=== PATIENT | female | born 1970 | race Caucasian/White ===

== ENCOUNTER 2020-05-20 16:26 | Outpatient (REF) | payer BC, SELFPAY ==
[2020-05-20 17:08] LABS: Influenza A PCR NEGATIVE (Negative); Influenza B PCR NEGATIVE (Negative); Resp Syncy Virus RNA Qual PCR NEGATIVE (Negative); SARS COV2 PCR INHOUSE NEGATIVE (Negative)
== END 2020-05-20 16:27 | disposition home or self-care (01) ==
LOC: HO.LNP 16:26
PROVIDERS: Visit Provider Internal Medicine
DX: Z20.828 Contact with and (suspected) exposure to other viral communicable diseases (principal)
CPT/HCPCS: 0241U

== ENCOUNTER 2020-08-10 16:42 | Outpatient (REF) | payer BC, SELFPAY ==
[2020-08-10 18:26] LABS: Basophils Percent Auto 0.2 % (0-2); Eosinophils Absolute Auto 0.1 X10*3/uL (0.0-0.4); Eosinophils Percent Auto 1.5 % (0-4); Hematocrit 41.3 % (37-47); Hemoglobin 13.5 g/dl (12.0-16.0); Imm Gran Abs Auto 0.01 X10*3/uL (0.00-0.03); Imm Gran Pct Auto 0.2 % (0.0-0.4); Lymphocytes Absolute Auto 0.3 X10*3/uL (1.2-4.9); Lymphocytes Percent Auto 7.3 % (20-40); MANUAL DIFF FLAG SCAN; Mean Corpuscular HGB Conc 32.7 g/dl (31.0-35.0); Mean Corpuscular Hemoglobin 31.2 pg (27.0-33.0); Mean Corpuscular Volume 95.4 fL (80-98); Mean Platelet Volume 11.8 fL (9.4-12.3); Monocytes Absolute Auto 0.9 X10*3/uL (0.1-1.2); Neutrophils Absolute Auto 2.8 X10*3/uL (2.0-8.3); Neutrophils Percent Auto 68.8 % (45-73); Platelet Count 226 X10*3/uL (160-400); Red Blood Count 4.33 X10*6/uL (4.20-5.50); Red Cell Distribution Width 13.1 % (11.0-16.0); SCAN SMEAR FLAG 1; White Blood Count 4.1 X10*3/uL (4.8-10.8)
[2020-08-10 18:44] LABS: SLIDE REVIEW VERIFIED
[2020-08-10 18:51] LABS: Alanine Aminotransferase 26 U/L (0-31); Albumin Level 4.6 g/dL (3.5-5.0); Alkaline Phosphatase 110 U/L (39-117); Anion Gap 11 (12-20); Aspartate Amino Transferase 25 U/L (5-31); Bilirubin Total 0.9 mg/dL (0.0-1.0); Blood Urea Nitrogen 15 mg/dL (9-16); Calcium 9.5 mg/dL (8.4-10.2); Carbon Dioxide 31 mmol/L (22-29); Chloride 103 mmol/L (96-108); Estimated Glomerular Filt Rate > 60; Glucose Random 79 mg/dL (60-115); Potassium 4.2 mmol/L (3.3-5.1); Sodium 141 mmol/L (135-145)
[2020-08-10 19:19] LABS: Vitamin B12 440 pg/mL (200-900)
== END 2020-08-10 16:43 | disposition home or self-care (01) ==
LOC: HO.LAB 16:42
PROVIDERS: PCP Internal Medicine; Visit Provider Internal Medicine
DX: M79.651 Pain in right thigh (principal); I78.1 Nevus, non-neoplastic
CPT/HCPCS: 36415; 80053; 82550; 82607; 85025; 86140

== ENCOUNTER 2020-08-27 07:32 | Outpatient (REF) | payer BC, SELFPAY ==
--- NOTE | ~2020-08-27 | MM_ITS ---
EXAMINATION: MM SCREENING DIGITAL BREAST TOMOSYNTHESIS, BILATERAL CLINICAL INFORMATION: Screening. Asymptomatic. The lifetime risk of breast cancer based on the Tyrer-Cuzick Model is 11.3%. COMPARISON: Mammography: March 31, 2019 and studies dating back to July 10, 2013 TECHNIQUE: Digital breast tomosynthesis is performed in both the craniocaudal and mediolateral oblique views along with computer-aided detection (CAD). Synthesized 2D images are generated from the tomosynthesis. FINDINGS: There are scattered areas of fibroglandular density (ACR BI-RADS breast composition Category b). There are no significant masses, abnormal calcifications, or other abnormalities. MM/MM tomosynthesis screening BI IMPRESSION: There are no significant changes from prior study. ASSESSMENT: BI-RADS 1: Negative RECOMMENDATION: Routine annual mammography screening. This patient's information was entered into a reminder system with a target due date for their next mammogram.
== END 2020-08-27 07:33 | disposition home or self-care (01) ==
LOC: HO.MAMMO 07:32
PROVIDERS: PCP Internal Medicine; Visit Provider Internal Medicine
DX: Z12.31 Encounter for screening mammogram for malignant neoplasm of breast (principal)
CPT/HCPCS: 77063; 77067

== ENCOUNTER → 2021-07-12 15:14 | Outpatient (BNVA) | payer BC, SELFPAY | PROVIDERS: PCP Internal Medicine; Referring Provider Internal Medicine; Visit Provider Surgery ==

== ENCOUNTER 2021-09-02 07:31 | Outpatient (REF) | payer BC, SELFPAY ==
--- NOTE | ~2021-09-02 | MM_ITS ---
EXAMINATION: MM SCREENING DIGITAL BREAST TOMOSYNTHESIS, BILATERAL CLINICAL INFORMATION: Screening. Asymptomatic. The lifetime risk of breast cancer based on the Tyrer-Cuzick Model is 11.1%. COMPARISON: Mammography: August 27, 2020 and studies dating back to October 12, 2015 TECHNIQUE: Digital breast tomosynthesis is performed in both the craniocaudal and mediolateral oblique views along with computer-aided detection (CAD). Synthesized 2D images are generated from the tomosynthesis. FINDINGS: There are scattered areas of fibroglandular density (ACR BI-RADS breast composition Category b). There are no significant masses, abnormal calcifications, or other abnormalities. MM/MM tomosynthesis screening BI IMPRESSION: There are no significant changes from prior study. ASSESSMENT: BI-RADS 1: Negative RECOMMENDATION: Routine annual mammography screening. This patient's information was entered into a reminder system with a target due date for their next mammogram.
== END 2021-09-02 07:32 | disposition home or self-care (01) ==
LOC: HO.MAMMO 07:31
PROVIDERS: PCP Internal Medicine; Visit Provider Internal Medicine
DX: Z12.31 Encounter for screening mammogram for malignant neoplasm of breast (principal)
CPT/HCPCS: 77063; 77067

== ENCOUNTER 2021-11-01 07:25 | Outpatient (REF) | payer BC, SELFPAY ==
[2021-11-01 08:06] LABS: MANUAL DIFF FLAG NO
[2021-11-01 08:19] LABS: Basophils Percent Auto 0.2 % (0-2); Eosinophils Absolute Auto 0.1 X10*3/uL (0.0-0.4); Eosinophils Percent Auto 1.5 % (0-4); Hematocrit 43.6 % (37.0-47.0); Hemoglobin 14.2 g/dl (12.0-16.0); Imm Gran Abs Auto 0.02 X10*3/uL (0.00-0.03); Imm Gran Pct Auto 0.5 % (0.0-0.4); Lymphocytes Absolute Auto 0.3 X10*3/uL (1.2-4.9); Lymphocytes Percent Auto 7.9 % (20-40); Mean Corpuscular HGB Conc 32.6 g/dl (31.0-35.0); Mean Corpuscular Hemoglobin 30.9 pg (27.0-33.0); Monocytes Absolute Auto 0.8 X10*3/uL (0.1-1.2); Monocytes Percent Auto 19.9 % (2-11); Neutrophils Absolute Auto 2.8 x10*3/uL (2.0-8.3); Platelet Count 233 X10*3/uL (160-400); Red Blood Count 4.59 X10*6/uL (4.20-5.50); Red Cell Distribution Width 13.1 % (11.0-16.0)
[2021-11-01 08:41] LABS: Alanine Aminotransferase 34 U/L (0-31); Albumin Level 4.6 g/dL (3.5-5.0); Alkaline Phosphatase 128 U/L (39-117); Aspartate Amino Transferase 25 U/L (5-31); Bilirubin Direct < 0.2 mg/dL (0.0-0.5); Bilirubin Total 0.4 mg/dL (0.0-1.0); Total Protein 7.2 g/dL (6.5-8.0)
== END 2021-11-01 07:26 | disposition home or self-care (01) ==
LOC: HO.LAB 07:25
PROVIDERS: PCP Internal Medicine; Visit Provider Physician Assistant
DX: G35 Multiple sclerosis (principal)
CPT/HCPCS: 36415; 80076; 85025

== ENCOUNTER 2022-04-06 11:46 | Outpatient (REF) | payer BC, SELFPAY ==
[2022-04-06 12:24] LABS: MANUAL DIFF FLAG NO
[2022-04-06 12:37] LABS: Basophils Percent Auto 0.3 % (0-2); Eosinophils Absolute Auto 0.1 X10*3/uL (0.0-0.4); Eosinophils Percent Auto 2.3 % (0-4); Hematocrit 40.7 % (37.0-47.0); Hemoglobin 13.5 g/dl (12.0-16.0); Imm Gran Abs Auto 0.01 X10*3/uL (0.00-0.03); Imm Gran Pct Auto 0.3 % (0.0-0.4); Lymphocytes Absolute Auto 0.3 X10*3/uL (1.2-4.9); Lymphocytes Percent Auto 7.9 % (20-40); Mean Corpuscular HGB Conc 33.2 g/dl (31.0-35.0); Mean Corpuscular Hemoglobin 30.8 pg (27.0-33.0); Mean Corpuscular Volume 92.7 fL (80.0-98.0); Mean Platelet Volume 10.8 fL (9.4-12.3); Monocytes Absolute Auto 0.8 X10*3/uL (0.1-1.2); Monocytes Percent Auto 19.8 % (2-11); Neutrophils Absolute Auto 2.7 x10*3/uL (2.0-8.3); Neutrophils Percent Auto 69.4 % (45-73); Platelet Count 224 X10*3/uL (160-400); Red Blood Count 4.39 X10*6/uL (4.20-5.50); Red Cell Distribution Width 12.8 % (11.0-16.0); White Blood Count 3.9 X10*3/uL (4.8-10.8)
[2022-04-06 13:25] LABS: Alanine Aminotransferase 23 U/L (0-31); Albumin Level 4.6 g/dL (3.5-5.0); Alkaline Phosphatase 122 U/L (39-117); Aspartate Amino Transferase 22 U/L (5-31); Bilirubin Direct 0.2 mg/dL (0.0-0.5); Bilirubin Total 0.6 mg/dL (0.0-1.0); Vitamin D 25-OH Total 19.8 ng/mL (>30)
[2022-04-06 13:47] LABS: Vitamin B12 335 pg/mL (200-900)
== END 2022-04-06 11:47 | disposition home or self-care (01) ==
LOC: HO.LAB 11:46
PROVIDERS: PCP Internal Medicine; Visit Provider Physician Assistant
DX: G35 Multiple sclerosis (principal)
CPT/HCPCS: 36415; 80076; 82306; 82607; 85025

== ENCOUNTER 2022-09-08 07:31 | Outpatient (REF) | payer BC, SELFPAY ==
--- NOTE | ~2022-09-08 | MM_ITS ---
EXAMINATION: MM SCREENING DIGITAL BREAST TOMOSYNTHESIS, BILATERAL CLINICAL INFORMATION: Screening. Asymptomatic. The lifetime risk of breast cancer based on the Tyrer-Cuzick Model is 10%. COMPARISON: Mammography: 09/02/2021, 08/27/2020, 04/10/2019 TECHNIQUE: Digital breast tomosynthesis is performed in both the craniocaudal and mediolateral oblique views along with computer-aided detection (CAD). Synthesized 2D images are generated from the tomosynthesis. Additional right MLO view is provided. FINDINGS: There are scattered areas of fibroglandular density (ACR BI-RADS breast composition Category b). There are no significant masses, abnormal calcifications, or other abnormalities. Parenchymal pattern is similar to prior studies. Some minor parenchymal asymmetries are stable. There is no developing density or architectural abnormality. The axilla and skin contours are unremarkable. No significant changes. MM/MM tomosynthesis screening BI IMPRESSION: No mammographic evidence of malignancy. ASSESSMENT: BI-RADS 2: Benign RECOMMENDATION: Routine annual mammography screening. This patient's information was entered into a reminder system with a target due date for their next mammogram.
== END 2022-09-08 07:32 | disposition home or self-care (01) ==
LOC: HO.MAMMO 07:31
PROVIDERS: Visit Provider Internal Medicine
DX: Z12.31 Encounter for screening mammogram for malignant neoplasm of breast (principal)
CPT/HCPCS: 77063; 77067

== ENCOUNTER 2022-09-26 16:17 | Outpatient (REF) | payer BC, SELFPAY ==
[2022-09-26 16:30] LABS: MANUAL DIFF FLAG NO
[2022-09-26 17:12] LABS: Basophils Percent Auto 0.2 % (0-2); Eosinophils Absolute Auto 0.1 X10*3/uL (0.0-0.4); Eosinophils Percent Auto 1.4 % (0-4); Hemoglobin 13.3 g/dl (12.0-16.0); Imm Gran Abs Auto 0.02 X10*3/uL (0.00-0.03); Imm Gran Pct Auto 0.5 % (0.0-0.4); Lymphocytes Absolute Auto 0.3 X10*3/uL (1.2-4.9); Lymphocytes Percent Auto 6.4 % (20-40); Mean Corpuscular HGB Conc 32.4 g/dl (31.0-35.0); Mean Corpuscular Volume 95.6 fL (80.0-98.0); Mean Platelet Volume 11.4 fL (9.4-12.3); Monocytes Absolute Auto 0.8 X10*3/uL (0.1-1.2); Monocytes Percent Auto 17.6 % (2-11); Neutrophils Absolute Auto 3.1 x10*3/uL (2.0-8.3); Neutrophils Percent Auto 73.9 % (45-73); Platelet Count 231 X10*3/uL (160-400); Red Blood Count 4.29 X10*6/uL (4.20-5.50); Red Cell Distribution Width 13.7 % (11.0-16.0); White Blood Count 4.3 X10*3/uL (4.8-10.8)
[2022-09-26 17:49] LABS: Alanine Aminotransferase 29 U/L (0-31); Albumin Level 4.4 g/dL (3.5-5.0); Alkaline Phosphatase 126 U/L (39-117); Aspartate Amino Transferase 23 U/L (5-31); Bilirubin Direct 0.1 mg/dL (0.0-0.5); Bilirubin Total 0.5 mg/dL (0.0-1.0); Total Protein 6.6 g/dL (6.5-8.0)
[2022-09-26 18:14] LABS: Vitamin B12 528 pg/mL (200-900); Vitamin D 25-OH Total 17.6 ng/mL (>30)
== END 2022-09-26 16:18 | disposition home or self-care (01) ==
LOC: HO.LAB 16:17
PROVIDERS: PCP Internal Medicine; Visit Provider Physician Assistant
DX: G35 Multiple sclerosis (principal)
CPT/HCPCS: 36415; 80076; 82306; 82607; 85025

== ENCOUNTER 2022-11-23 07:46 | Outpatient (REF) | payer BC, SELFPAY ==
[2022-11-23 09:16] LABS: Anion Gap 11 (12-20); Blood Urea Nitrogen 12 mg/dL (9-16); Calcium 10.1 mg/dL (8.4-10.2); Carbon Dioxide 31 mmol/L (22-29); Chloride 105 mmol/L (96-108); Cholesterol 235 mg/dL; Estimated Glomerular Filt Rate > 60; Glucose Random 68 mg/dL (60-115); Potassium 3.8 mmol/L (3.3-5.1); Sodium 143 mmol/L (135-145)
[2022-11-23 09:30] LABS: Free T4 (Free Thyroxine) 1.06 ng/dL (0.71-1.85); Thyroid Stimulating Hormone 1.64 uIU/mL (0.32-4.0)
== END 2022-11-23 07:47 | disposition home or self-care (01) ==
LOC: HO.LAB 07:46
PROVIDERS: PCP Internal Medicine; Visit Provider Internal Medicine
DX: G35 Multiple sclerosis (principal); R53.83 Other fatigue; L98.9 Disorder of the skin and subcutaneous tissue, unspecified
CPT/HCPCS: 36415; 80048; 82465; 84439; 84443

== ENCOUNTER 2023-04-14 07:24 | Outpatient (REF) | payer BC, SELFPAY ==
[2023-04-14 07:36] LABS: MANUAL DIFF FLAG NO
[2023-04-14 07:53] LABS: Basophils Percent Auto 0.3 % (0-2); Eosinophils Absolute Auto 0.1 X10*3/uL (0.0-0.4); Eosinophils Percent Auto 2.4 % (0-4); Hematocrit 41.3 % (37.0-47.0); Hemoglobin 13.2 g/dl (12.0-16.0); Imm Gran Abs Auto 0.01 X10*3/uL (0.00-0.03); Imm Gran Pct Auto 0.3 % (0.0-0.4); Lymphocytes Absolute Auto 0.4 X10*3/uL (1.2-4.9); Lymphocytes Percent Auto 9.7 % (20-40); Mean Corpuscular Hemoglobin 30.8 pg (27.0-33.0); Mean Corpuscular Volume 96.3 fL (80.0-98.0); Mean Platelet Volume 11.2 fL (9.4-12.3); Monocytes Absolute Auto 0.8 X10*3/uL (0.1-1.2); Neutrophils Absolute Auto 2.6 x10*3/uL (2.0-8.3); Neutrophils Percent Auto 67.3 % (45-73); Platelet Count 252 X10*3/uL (160-400); Red Blood Count 4.29 X10*6/uL (4.20-5.50); Red Cell Distribution Width 13.2 % (11.0-16.0); White Blood Count 3.8 X10*3/uL (4.8-10.8)
[2023-04-14 08:14] LABS: Alanine Aminotransferase 30 U/L (0-31); Albumin Level 4.3 g/dL (3.5-5.0); Alkaline Phosphatase 112 U/L (39-117); Aspartate Amino Transferase 21 U/L (5-31); Bilirubin Direct 0.2 mg/dL (0.0-0.5); Bilirubin Total 0.5 mg/dL (0.0-1.0); Total Protein 6.9 g/dL (6.5-8.0)
== END 2023-04-14 07:25 | disposition home or self-care (01) ==
LOC: HO.LAB 07:24
PROVIDERS: PCP Internal Medicine; Visit Provider Student in an Organized Health Care Education/Training Program
DX: G35 Multiple sclerosis (principal)
CPT/HCPCS: 36415; 80076; 82306; 85025

== ENCOUNTER 2023-09-11 08:21 | Outpatient (REF) | payer BC, SELFPAY ==
[2023-09-11 09:11] LABS: Basophils Percent Auto 0.3 % (0-2); Eosinophils Percent Auto 1.2 % (0-4); Hematocrit 41.6 % (37.0-47.0); Hemoglobin 13.7 g/dl (12.0-16.0); Imm Gran Abs Auto 0.01 X10*3/uL (0.00-0.03); Imm Gran Pct Auto 0.3 % (0.0-0.4); Lymphocytes Absolute Auto 0.3 X10*3/uL (1.2-4.9); Lymphocytes Percent Auto 7.5 % (20-40); MANUAL DIFF FLAG SCAN; Mean Corpuscular HGB Conc 32.9 g/dl (31.0-35.0); Mean Corpuscular Hemoglobin 31.1 pg (27.0-33.0); Mean Corpuscular Volume 94.5 fL (80.0-98.0); Mean Platelet Volume 11.1 fL (9.4-12.3); Monocytes Absolute Auto 0.7 X10*3/uL (0.1-1.2); Monocytes Percent Auto 21.6 % (2-11); Neutrophils Absolute Auto 2.3 x10*3/uL (2.0-8.3); Neutrophils Percent Auto 69.1 % (45-73); Platelet Count 193 X10*3/uL (160-400); Red Cell Distribution Width 13.8 % (11.0-16.0); SCAN SMEAR FLAG 1; White Blood Count 3.3 X10*3/uL (4.8-10.8)
[2023-09-11 09:49] LABS: Alanine Aminotransferase 26 U/L (0-31); Albumin Level 4.4 g/dL (3.5-5.0); Alkaline Phosphatase 115 U/L (39-117); Aspartate Amino Transferase 23 U/L (5-31); Bilirubin Direct 0.2 mg/dL (0.0-0.5); Bilirubin Total 0.7 mg/dL (0.0-1.0); Total Protein 6.7 g/dL (6.5-8.0)
[2023-09-11 09:58] LABS: SLIDE REVIEW VERIFIED
[2023-09-11 10:06] LABS: Vitamin D 25-OH Total 9.7 ng/mL (>30)
[2023-09-11 10:33] LABS: Vitamin B12 397 pg/mL (200-900)
== END 2023-09-11 08:22 | disposition home or self-care (01) ==
LOC: HO.LAB 08:21
PROVIDERS: PCP Internal Medicine; Visit Provider Physician Assistant
DX: G35 Multiple sclerosis (principal)
CPT/HCPCS: 36415; 80076; 82306; 82607; 85025

== ENCOUNTER → 2023-09-26 07:30 | Outpatient (BNV) | payer BC, SELFPAY | PROVIDERS: PCP Internal Medicine; Visit Provider Radiology Diagnostic Radiology | DX: Z12.31 Encounter for screening mammogram for malignant neoplasm of breast (principal) | CPT/HCPCS: 77063; 77067 ==

== ENCOUNTER 2023-09-26 07:32 | Outpatient (REF) | payer BC, SELFPAY | END 2023-09-26 07:33 | disposition home or self-care (01) | LOC: HO.MAMMO 07:32 | PROVIDERS: PCP Internal Medicine; Visit Provider Internal Medicine | DX: Z12.31 Encounter for screening mammogram for malignant neoplasm of breast (principal) | CPT/HCPCS: 77063; 77067 ==

== ENCOUNTER → 2024-10-09 07:30 | Outpatient (BNV) | payer BC, SELFPAY | PROVIDERS: Visit Provider Internal Medicine | DX: Z12.31 Encounter for screening mammogram for malignant neoplasm of breast (principal) | CPT/HCPCS: 77063; 77067 ==

== ENCOUNTER 2024-10-09 07:32 | Outpatient (REF) | payer BC, SELFPAY ==
--- OUTSIDE RECORDS SUMMARY | 2024-10-09 07:34 | XMS_ITS | Clinical Summary ---
Author Organization [facility] Address [address] [place] [address] Phone Care Team Providers Care Automated Logistics Specialist Name Role Phone Antonio Zarate MD Primary Care Provider [phone] Allergies Active Allergy Reactions Criticality Noted Date Comments Latex Rash Low 05/07/2020 Penicillins 05/07/2020 Medications dalfampridine 10 mg tablet extended release 12 hr TAKE 1 TABLET EVERY 12 HOURS 12/25/2023 Active ergocalciferol (VITAMIN D-2) 1,250 mcg (50,000 unit) capsule 1 cap weekly x 12 weeks 05/20/2020 Active fingolimod (GILENYA) 0.5 mg capsule TAKE 1 CAPSULE DAILY 10/18/2023 Active sertraline (ZOLOFT) 50 mg tablet Take 1 tablet (50 mg total) by mouth daily. Active Active Problems Problem Noted Date Diagnosed Date Depression 08/18/2020 Medical History Medical History Date Comments MS (multiple sclerosis) ([facility] V24, [facility] V28) DX:MS (multiple sclerosis) ( [facility]) Family History Medical History Relation Name Comments Stroke Father Relation Name Status Comments Father Social History Tobacco Use Types Packs/Day Years Used Date Smoking Tobacco: Never Smokeless Tobacco: Never Comments Unknown Sex and Gender Information Value Date Recorded Sex Assigned at Not on file Legal Sex Female 7:27 AM EST Gender Identity Not on file Sexual Orientation Not on file Obstetrics History Last Filed Vital Signs Vital Sign Reading Time Taken Comments Blood Pressure 109/69 12/06/2023 3:50 PM EDT Sitting Left arm Pulse 81 12/06/2023 3:50 PM EDT Temperature - - Respiratory Rate - - Oxygen Saturation - - Inhaled Oxygen Concentration - - Weight 55.7 kg (122 lb 12.8 oz) 12/06/2023 3:50 PM EDT Height 149.9 cm (4' 11 ) 12/06/2023 3:5 0 PM EDT Body Mass Index 24.8 12/06/2023 3:50 PM EDT Plan of Treatment Upcoming Encounters Date Type Department Care Team (Late st Contact Info) Description 10/14/2024 4:00 PM EDT Office Visit [facility] [address] [place] [phone] Sylvia Murphy PA [address] [place] [address] Health Maintenance Due Date Last Done Comments Breast Cancer Screening 1972 DTaP,Tdap,and Td Vaccines (1 - Tdap) 1991 Hepatitis B Vaccines (1 of 3 - 19+ 3-dose series) 1991 Cervical Cancer Screening: P ap Smear 1993 Colorectal Cancer Screening: Colonoscopy 05/06/2022 Depression Screening 05/06/2022 HIV Screening 05/06/2022 Hepatitis C Screening 05/06/2022 Social Influencers of Health Screening 05/06/2022 Pneumococcal Vaccine: 50+ Ye ars (1 of 1 - PCV) 2022 Zoster Vaccines (1 of 2) 2022 COVID-19 Vaccine (1 - 2023-2 5 season) 2024 Influenza Vaccine (Season Ended) 2025 HIB Vaccines Aged Out No longer eligi ble based on patient's age to complete this topic HPV Vaccines Aged Out No longer eligi ble based on patient's age to complete this topic Hepatitis A Vaccines Aged Out No long er eligible based on patient's age to complete this topic IPV Vaccines Aged Out No longer eligi ble based on patient's age to complete this topic MMR Vaccines Aged Out No longer eligi ble based on patient's age to complete this topic Meningococcal ACWY Vaccine Aged Out N o longer eligible based on patient's age to complete this topic Meningococcal B Vaccine Aged Out No l onger eligible based on patient's age to complete this topic Pneumococcal Vaccine: Pediat rics (0 to 5 Years) and At-Risk Patients (6 to 64 Years) Aged Out No longer eligible b ased on patient's age to complete this topic RSV Immunization Patients Un letty 20 months Aged Out No longer eligible b ased on patient's age to complete this topic Varicella Vaccines Aged Out No longer eligible based on patient's age to complete this topic Insurance [facility] Care Teams Automated Logistics Specialist Relationship Specialty Start Date End Date Antonio Zarate MD [address] [place] [address] Dr Poly [place] PCP - General Senior Asic Engineer 04/13/20
--- OUTSIDE RECORDS SUMMARY | 2024-10-09 07:34 | XMS_ITS ---
Author Organization [facility] Address 10 [facility] [address] [place] [address] Care Team Providers Care Metal Room Dental Technician Name Role Phone Antonio Zarate MD Primary Care Provider Wiley Pereira [phone] REASON FOR VISIT screening Encounters Encounter Location Date Provider Diagnosis [facility] Out[place] [address] [place], [place] [phone] 08/23/2024 Wiley Richardson Plan Of Treatment Next Appt Details Provider Name:Wiley Richardson , 12/20/2024 01:40:00 PM, [address] [facility] [address], [address], [place], [address], Progress Notes * ELEAZAR HALLDONALOB:[birth year] (54 yo F)Acc No.[id number]:08/23/2024 COLON WITH MAC Patient:?MARY KATE HALL Provider:?Wiley Richardson MD :1970???Age:54 Y???Sex:Female D ate:08/23/2024 Address:[address] [place], [place] [phone] Pcp:Antonio Zarate MD Subjective: * Chief Complaints: * ???1. Screening. * Medical History:? Objective: * Vitals:? Assessment: Plan: * Treatment: * * The named appointment provid er may or may not be the originator of this progress note, and it is not deemed complete until electronically signed by the appointment provider. Sign off status: Pending * Provider:?Wiley Richardson MD Date:? 025 Generated for Betsy cleary/Huma/eTransmitting on:?10/09/2024 07:34 AM EDT
--- OUTSIDE RECORDS SUMMARY | 2024-10-09 07:34 | XMS_ITS | Patient Health Record ---
Author Organization [facility] Address [address] [place] [address] Care Team Providers Care Urban Designer Name Role Phone Antonio Zarate MD Primary Care Provider Wiley Pereira Unavailable [phone] Allergies Allergen (clinical drug ingredient) Drug/Non Drug Allergy documented on EMR Reaction Allergy Type Onset Date Status Latex Latex Unknown Allergy Active Reason For Referral No Information Medications Medication SIG (Take, Route, Fr equency, Duration) Notes Start Date End Date Status Fingolimod HCl 0.5 MG Oral for 90 Active Dalfampridine ER 10 MG Oral for 90 Active Sertraline HCl 50 MG 1 tablet Orally Once a day Active Immunizations Vaccine Route Administration Date Status Comme nts Influenza Unknown 03/21/2023 Administered Social History Tobacco Use: Social History Observation Description Date Details (start date - stop date) Never Smoker NA - NA Tobacco Use/Smoking Question Answer Notes Patient is a nonsmoker Alcohol Screen Question Answer Notes Did you have a drink containing alcohol in the p ast year? No Points 0 Interpretation Negative Section Notes: Nonsmoker; no sig alcohol Problems Problem Type SNOMED Code ICD Code Onset Dates Problem Status W/U Status Risk Notes Problem Colon cancer screening (338807728) Colon cancer screening (Z12.11) Active confirmed Problem Pre-procedure evaluation check (278009750) Encounter for other preprocedural examination (Z01.818) Active confirmed Vital Signs Temperature 96.9 degrees Fahrenheit 10/26/2023 Blood pressure diastolic 00 mm Hg 10/26/2023 Height 4 ft 10.25 in in 10/26/2023 Blood pressure systolic 000 mm Hg 10/26/2023 Weight 121 lb 8 oz lbs 10/26/2023 BMI 25.17 kg/m2 10/26/2023 Encounters Encounter Location Date Provider Diagnosis [facility] [address] [place] [address] 10/26/2023 Wiley Richardson Colon cancer screeni ng Z12.11 and Encounter for other preprocedural examination Z01.818 [facility] [address] [place] [address] 02/20/2024 Wiley Richardson [facility] [address] [place] [address] 06/04/2024 Wiley Foley [facility] [address] [place] [address] 08/22/2024 Wiley Richardson Assessments Encounter Date Diagnosis (ICD Code) Assessment Notes Treatment Notes Treatment Clinical Notes Section Notes 10/26/2023 Colon cancer screening (ICD-10 - Z12.11) Overall, Bakari appears quite well. Given her age and good clinical appearance, I did recommend a screening colonoscopy for further evaluation. We did review the rationale for that in regard to colon cancer prevention. Full consent is obtained for this, including risks of bleeding and perforation. The procedure will be done with monitored anesthesia care. Bakari was comfortable with this plan. Thank you again for allowing me to participate in Bakari's care. I shall continue to keep you advised of her progress. 10/26/2023 Encounter for other preprocedural examination (ICD-10 - Z01.818) Overall, Bakari appears quite well. Given her age and good clinical appearance, I did recommend a screening colonoscopy for further evaluation. We did review the rationale for that in regard to colon cancer prevention. Full consent is obtained for this, including risks of bleeding and perforation. The procedure will be done with monitored anesthesia care. Bakari was comfortable with this plan. Thank you again for allowing me to participate in Bakari's care. I shall continue to keep you advised of her progress. Plan Of Treatment Future Test Test Name Order Date COLONOSCOPY 10/26/2023 Next Appt Details Provider Name:Wiley Richardson , 12/20/2024 01:40:00 PM, 10 [facility], [address], [place], [address], Insurance Providers Payer Name Payer Address Payer Phone Subscriber Number Group Number Insured Name Patient Relationship to Insured Coverage Start Date Coverage End Date [facility] [address] [place] [address] [id number] BAKARI HALL Self - patient is the insured Medical (General) History Medical History History ICD Code Multiple sclerosis--balance issues Anxiety Denies [place],DM,CVA,Lung disease,renal dise ase Surgical History Surgery Date(Month/Year)
--- OUTSIDE RECORDS SUMMARY | 2024-10-09 07:34 | XMS_ITS ---
Author Name [facility] Organization Unknown Problems Problem Status Onset Date Problem Type Date of Resoluti on Source Multiple sclerosis (HCC) active EncounterDiagnosisAct CTTHNE MG Depression active 2020-08-18 ProblemAct CTTHNEM G
--- OUTSIDE RECORDS SUMMARY | 2024-10-09 07:34 | XMS_ITS ---
Author Organization [facility] Address [address] [facility] [address] [place] [address] Care Team Providers Care Resource Room Teacher Name Role Phone Antonio Zarate MD Primary Care Provider Angiea Wiley Branch [phone] REASON FOR VISIT screening Encounters Encounter Location Date Provider Diagnosis [facility] [place] [address] [place], [place] [phone] 06/28/2024 Wiley Richardson Plan Of Treatment Next Appt Details Provider Name:Wiley Richardson , 12/20/2024 01:40:00 PM, [address] [facility], [address], [place], [address], Progress Notes * ELEAZAR HALLDONALOB:[birth year] (54 yo F)Acc No.[id number]:06/28/2024 COLON WITH MAC Patient:?MARY KATE HALL Provider:?Wiley Richardson MD :1970???Age:54 Y???Sex:Female D ate:06/28/2024 Address:[address] [place], [place] [phone] Pcp:Antonio Zarate MD Subjective: * Chief Complaints: [...] Date:? 025 Generated for Betsy cleary/Huma/eTransmitting on:?10/09/2024 07:33 AM EDT
--- OUTSIDE RECORDS SUMMARY | 2024-10-09 07:34 | XMS_ITS | Clinical Summary ---
Author Organization [facility] Address [address] [place] [address] Care Team Providers Care Proposal Manager Name Role Phone Antonio Zarate MD Primary Care Provider [phone] Allergies Active Allergy Reactions Criticality Noted Date Comments Latex Rash Low 05/07/2020 Penicillins 05/07/2020 Medications Medication Sig Dispensed Refills Start Date End Date Status sertraline (ZOLOFT) 50 MG tablet Take 1 tablet (50 mg total) by mouth daily. 0 Active ergocalciferol (VITAMIN D2) capsule 86762 units 1 cap weekly x 12 weeks 12 capsule 0 05/20/2020 Active Fingolimod HCl 0.5 MG CAPS TAKE 1 CAPSULE DAILY 90 capsule 3 10/18/2023 Active dalfampridine ER (AMPYRA) 10 MG 12 hr tablet TAKE 1 TABLET EVERY 12 HOURS 180 tablet 3 12/25/2023 Active Active Problems Problem Noted Date Diagnosed Date Depression 08/18/2020 Family History Medical History Relation Name Comments Stroke Father Relation Name Status Comments Father Social History Tobacco Use Types Packs/Day Years Used Date Smoking Tobacco: Never Smokeless Tobacco: Never Tobacco Cessation:Counseling Given: Not Answered Sex and Gender Information Value Date Recorded Sex Assigned at Female 05/06/2020 9:53 AM EST Gender Identity Not on file Sexual Orientation Not on file Job Start Date Occupation Industry Not on file Not on file Not on file Last Filed Vital Signs Vital Sign Reading Time Taken Comments Blood Pressure 109/69 12/06/2023 3:50 PM EDT Pulse 81 12/06/2023 3:50 PM EDT Temperature 36.2 ??C (97.2 ??F) 12/06/2023 3:50 PM ED T Respiratory Rate 16 09/14/2022 3:44 PM EDT Oxygen Saturation 96% 12/06/2023 3:50 PM EDT Inhaled Oxygen Concentration - - Weight 55.7 kg (122 lb 12.8 oz) 12/06/2023 3:50 PM EDT Height 149.9 cm (4' 11 ) 12/06/2023 3:50 PM EDT Body Mass Index 24.8 12/06/2023 3:50 PM EDT Plan of Treatment Health Maintenance Due Date Last Done Comments Hepatitis B Vaccines (1 of 3 - 3-dose series) 1972 Hepatitis C Screening 1972 COVID-19 Vaccine (#1) 1972 Depression Screening 1984 BMI Counseling 1990 Preventative Health Evaluation 1990 DTap / Tdap / Td (1 - Tdap) 1991 Cervical Cancer Screening (P ap Smear) 1993 Colon Cancer Screening (Colonoscopy) 2017 Breast Cancer Screening (Mammogram) 2022 Shingrix-Zoster Vaccine (1 of 2) 2022 Influenza Vaccine (#1) 2024 Pneumococcal Vaccine Aged Out No long er eligible based on patient's age to complete this topic RSV Ped < 20 months Aged Out No longe r eligible based on patient's age to complete this topic Care Teams Proposal Manager Relationship Specialty Start Date End Date Antonio Zarate MD [address] [place] [address] [address] [place] [address] PCP - General Irrigation Equipment Remover 04/13/20
--- OUTSIDE RECORDS SUMMARY | 2024-10-09 07:34 | XMS_ITS ---
Author Organization [facility] Address [address] [place] [address] Care Team Providers Care Landfill Gas Collection System Operator Name Role Phone Antonio Zarate MD Primary Care Provider Wiley Pereira [phone] REASON FOR VISIT Cancel Procedure Encounters Encounter Location Date Provider Diagnosis [facility] [address] [place] [address] 08/22/2024 Wiley Richardson Plan Of Treatment Next Appt Details Provider Name:Wiley Richardson , 12/20/2024 01:40:00 PM, [address], [address], [place], [address], Progress Notes * GERTRUDE HALLOB:[birth year] (54 yo F)Acc No.[id number]:08/22/2024 Patient:?MARY KATE HALL :1970???Age:54 Y???Sex:Female Address:[address] [facility] , [place], [address] * true * Date:? Generated for Ericki madiha/Huma/eTransmitting on:?10/09/2024 07:33 AM EDT
== END 2024-10-09 07:33 | disposition home or self-care (01) ==
LOC: HO.MAMMO 07:32
PROVIDERS: Visit Provider Internal Medicine
DX: Z12.31 Encounter for screening mammogram for malignant neoplasm of breast (principal)
CPT/HCPCS: 77063; 77067

== ENCOUNTER 2024-11-14 08:00 | Outpatient (REF) | payer BC, SELFPAY ==
--- OUTSIDE RECORDS SUMMARY | 2024-11-14 08:06 | XMS_ITS | Clinical Summary ---
Author Organization 175 [facility] Address [address] [place] [address] Phone Care Team Providers Care Human Resources Assistant Manager Name Role Phone Antonio Zarate MD Primary Care Provider [phone] Allergies Active Allergy Reactions Criticality Noted Date Comments Latex Rash Low 05/07/2020 Penicillins 05/07/2020 Medications dalfampridine 10 mg tablet extended release 12 hr TAKE 1 TABLET EVERY 12 HOURS 4 Active ergocalciferol (VITAMIN D-2) 1,250 mcg (50,000 unit) capsule 1 cap weekly x 12 weeks 0 Active fingolimod (GILENYA) 0.5 mg capsuleIndicati ons:Multiple sclerosis (CMS/HCC V24, CMS/HCC V28) Take 1 capsule (0.5 mg total) by mouth 1 (one) time each day. 30 capsule 5 12/09/19 25 Active sertraline (ZOLOFT) 50 mg tablet Take 1 tablet (50 mg total) by mouth 1 (one) time each day. 30 each 5 12/09/19 25 Active fingolimod (GILENYA) 0.5 mg capsule TAKE 1 CAPSULE DAILY 4 11/09/19 25 Discontinu ed(Reorder ) sertraline (ZOLOFT) 50 mg tablet Take 1 tablet (50 mg total) by mouth daily. 11/09/19 25 Discontinu ed(Reorder ) fingolimod (GILENYA) 0.5 mg capsule msot 30 capsule 5 11/09/19 25 Discontinu ed(Reorder ) Active Problems Problem Noted Date Diagnosed Date Depression 08/18/2020 Encounters Date Type Department Care Team Description 10/14/2024 4:00 PM EDT Office Visit [facility] [address] [facility] [address] [place] [address] Sylvia Murphy PA Multiple sclerosis (CMS/HCC V24, CMS/HCC V28) (Primary Dx) from Last 3 Months Medical History Medical History Date Comments MS (multiple sclerosis) (CMS /HCC V24, CMS/HCC V28) DX:MS (multiple sclerosis) ( HCC) Family History Medical History Relation Name Comments [...] Sign Reading Time Taken Comments Blood Pressure 130/84 10/14/2024 3:49 PM EDT Pulse 73 10/14/2024 3:49 PM EDT Temperature - - Respiratory Rate - - Oxygen Saturation 99% 10/14/2024 3:49 PM EDT Inhaled Oxygen Concentration - - Weight 56.2 kg (124 lb) 10/14/2024 3:49 PM EDT Height 147.3 cm (4' 10 ) 10/14/2024 3:49 PM EDT Body Mass Index 25.92 10/14/2024 3:49 PM EDT Plan of Treatment Upcoming Encounters Date Type Department Care Team (Late st Contact Info) Description 04/16/2025 4:00 PM EST Office Visit [facility] [address] [facility] [address] [place] [phone] Sylvia Murphy PA [address] [facility] [address] [place] [address] Health Maintenance Due Date Last Done Comments Breast Cancer Screening 1972 DTaP,Tdap,and Td Vaccines (1 - Tdap) 1991 Hepatitis B Vaccines (1 of 3 - 19+ 3-dose series) 1991 Cervical Cancer Screening: Pap Smear 1993 Colorectal Cancer Screening: Colonoscopy 05/06/2022 Depression Screening 05/06/2022 HIV Screening 05/06/2022 Hepatitis C Screening 05/06/2022 Social Influencers of Health Screening 05/06/2022 Pneumococcal Vaccine: 50+ Years (1 of 1 - PCV) 2022 Zoster Vaccines (1 of 2) 2022 COVID-19 Vaccine (3 - season) 2024 08/07/2020, 07/17/2020 Influenza Vaccine Completed 03/29/2024, , 03/20/2022, Additional history exists HIB Vaccines Aged Out No longer eligi [...] age to complete this topic Pneumococcal Vaccine: Pediatrics (0 to 5 Years) and At-Risk Patients (6 to 64 Years) Aged Out No longer eligible based on patient's age to complete this topic RSV Immunization Patients Under 20 months Aged Out No longer eligible based on patient's age to complete this topic Varicella Vaccines Aged Out No longer eligible based on patient's age to complete this topic Insurance [facility] Care Teams Human Resources Assistant Manager Relationship Specialty Start Date End Date Antonio Zarate MD [address] [place] [address] Dr Poly [place] PCP - General Apiarist 04/13/20
[2024-11-14 08:11] LABS: MANUAL DIFF FLAG NO
[2024-11-14 08:25] LABS: Basophils Percent Auto 0.2 % (0-2); Eosinophils Absolute Auto 0.1 X10*3/uL (0.0-0.4); Eosinophils Percent Auto 1.2 % (0-4); Hematocrit 40.6 % (37.0-47.0); Hemoglobin 13.4 g/dl (12.0-16.0); Imm Gran Abs Auto 0.02 X10*3/uL (0.00-0.03); Imm Gran Pct Auto 0.5 % (0.0-0.4); Lymphocytes Absolute Auto 0.3 X10*3/uL (1.2-4.9); Lymphocytes Percent Auto 7.1 % (20-40); Mean Corpuscular Hemoglobin 30.3 pg (27.0-33.0); Mean Corpuscular Volume 91.9 fL (80.0-98.0); Mean Platelet Volume 10.8 fL (9.4-12.3); Monocytes Absolute Auto 0.8 X10*3/uL (0.1-1.2); Monocytes Percent Auto 18.7 % (2-11); Neutrophils Percent Auto 72.3 % (45-73); Platelet Count 237 X10*3/uL (160-400); Red Blood Count 4.42 X10*6/uL (4.20-5.50); Red Cell Distribution Width 13.7 % (11.0-16.0); White Blood Count 4.1 X10*3/uL (4.8-10.8)
[2024-11-14 09:04] LABS: Alanine Aminotransferase 30 U/L (0-31); Albumin Level 4.7 g/dL (3.5-5.0); Alkaline Phosphatase 113 U/L (39-117); Aspartate Amino Transferase 24 U/L (5-31); Bilirubin Direct 0.2 mg/dL (0.0-0.5); Bilirubin Total 0.5 mg/dL (0.0-1.0)
[2024-11-14 09:19] LABS: Vitamin D 25-OH Total 22.8 ng/mL (>30)
[2024-11-14 09:23] LABS: Vitamin B12 433 pg/mL (200-900)
== END 2024-11-14 08:01 | disposition home or self-care (01) ==
LOC: HO.LAB 08:00
PROVIDERS: PCP Internal Medicine; Visit Provider Physician Assistant
DX: G35 Multiple sclerosis (principal)
CPT/HCPCS: 36415; 80076; 82306; 82607; 85025

== ENCOUNTER 2025-02-14 10:48 | Outpatient (AMB) | payer BC, SELFPAY ==
[2025-02-14 10:53] VITALS: BP 126/82; PULSE 85; RESP 16; TEMP 36.9; O2SAT 96; BMI 25.5
--- NOTE | 2025-02-14 10:53 | MHC.OFFWIV ---
Intake Vital Signs 02/14/25 10:53 Height 4 ft 10.25 in Weight 123 lb BMI 25.5 BP 126/82 Blood Pressure Location Lt brachial Position Sitting Respiration 16 Pulse 85 Pulse Source Pulse Oximeter Temp 98.4 F Temp Source Oral Pulse Oximetry (%) 96 Oxygen Delivery Method Room Air Intake Visit Reasons: ep pink eye Allergies Penicillins Allergy (Unknown, Verified 02/14/25 10:55) UNKNOWN latex Allergy (Verified 02/14/25 10:55) Unknown Medication List - Last Reconciled 02/14/25 by Bhavna Flynn MD dalfampridine ER mg PO fingolimod (Gilenya) 0.5 mg PO DAILY sertraline 100 mg PO DAILY HPI ep pink eye HPI Details History of Present Illness The patient is a 54 year old female presenting with conjunctivitis in the right eye. Conjunctivitis: - Symptoms began yesterday, characterized by heaviness, discharge, and crusting in the right eye. - Patient usually has poor vision, with no changes noted since onset. 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 - Has multiple sclerosis which complicates general health but no direct link to eye symptoms. 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 Problem List - Conjunctivitis - Multiple sclerosis Patient Instructions - Use the prescribed eye drops as directed. Polytrim eyedrops - Stay home from work today to prevent spreading. Review of Systems - General: No fever no chills - Neurological: No headaches no dizziness - Ear nose throat: No sore throat no hearing difficulty no ear pain - Cardiovascular: No syncope, no chest pain, no palpitations Physical Exam General: No acute distress HEENT: Conjunctivitis in the right eye with discharge and crusting, YI, EOMI, no photophobia Neck: Supple Respiratory system: Able to talk in full sentences, no audible wheeze Gastrointestinal: No pain Extremities: No new findings CARRY OUT CLERK AND SHELF STOCKER: Alert awake oriented x3 motor intact Skin: Normal turgor Patient was informed and verbally consented to the use of an ambient scribe for clinic note documentation during this visit. [facility] Medical History Anxiety Balance problem Epidermal cyst Multiple sclerosis Surgical History No pertinent past surgical history Physical Exam Vital Signs: Last Vital Signs Temp 98.4 F 02/14/25 10:53 Pulse 85 02/14/25 10:53 Resp 16 02/14/25 10:53 BP 126/82 02/14/25 10:53 Pulse Ox 96 02/14/25 10:53 Oxygen Delivery Method Room Air 02/14/25 10:53 BMI result Body Mass Index 25.5 Assessment & Plan Assessment & Plan (1) Acute conjunctivitis, right eye: Code(s): H10.31 - Unspecified acute conjunctivitis, right eye Qualifiers: Acute conjunctivitis type: unspecified Qualified Code(s): H10.31 - Unspecified acute conjunctivitis, right eye Plan History of Present Illness The patient is a 54 year old female presenting with conjunctivitis in the right eye. Conjunctivitis: - Symptoms began yesterday, characterized by heaviness, discharge, and crusting in the right eye. - Patient usually has poor vision, with no changes noted since onset. 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 - Has multiple sclerosis which complicates general health but no direct link to eye symptoms. 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 Problem List - Conjunctivitis - Multiple sclerosis Patient Instructions - Use the prescribed eye drops as directed. Polytrim eyedrops - Stay home from work today to prevent spreading. Medications: New polymyxin B sulf-trimethoprim 10,000 unit- 1 mg/mL while awake; do not exceed 6 doses in 24 hours 1 drp ophthalmic (eye) QID 10 mL 0RF 5 days Coding Level of Care Code Est Pt Level 3 (93165) Diagnoses Acute conjunctivitis of right eye, unspecified acute conjunctivitis type H10.31 Acute conjunctivitis type: unspecified
--- OUTSIDE RECORDS SUMMARY | 2025-02-14 11:25 | XMS_ITS | Clinical Summary ---
Author Organization 175 [facility] Address [address] [place] [address] Phone Care Team Providers Care Button Sawyer Name Role Phone Antonio Zarate MD Primary Care Provider [phone] Allergies Active Allergy Reactions Criticality Noted Date Comments Latex Rash Low 05/07/2020 Penicillins 05/07/2020 Medications ergocalciferol (VITAMIN D-2) 1,250 mcg (50,000 unit) capsule 1 cap weekly x 12 weeks 0 Active dalfampridine 10 mg tablet extended release 12 hrIndications:Mu ltiple sclerosis,Gait abnormality Take 1 tablet by mouth every 12 (twelve) hours. 60 tablet 3 5 Active ergocalciferol (VITAMIN D-2) 1,250 mcg (50,000 unit) capsule Take 1 capsule (50,000 Units total) by mouth 1 (one) time per week. 4 each 5 01/14/20 26 Active fingolimod (GILENYA) 0.5 mg capsuleIndicatio ns:Multiple sclerosis Take 1 capsule (0.5 mg total) by mouth 1 (one) time each day. 30 capsule 2 5 04/16/20 25 Active sertraline (ZOLOFT) 50 mg tablet Take 1 tablet (50 mg total) by mouth 1 (one) time each day. 30 each 5 02/20/20 25 Active sertraline (ZOLOFT) 50 mg tablet Take 1 tablet (50 mg total) by mouth 1 (one) time each day. 30 each 5 01/17/20 25 Discontinu ed(Reorder ) fingolimod (GILENYA) 0.5 mg capsuleIndicatio ns:Multiple sclerosis Take 1 capsule (0.5 mg total) by mouth 1 (one) time each day. 30 capsule 2 5 01/17/20 25 Discontinu ed(Reorder ) sertraline (ZOLOFT) 50 mg tablet Take 1 tablet (50 mg total) by mouth 1 (one) time each day. 30 each 5 01/21/20 25 Discontinu ed(Reorder ) Active Problems Problem Noted Date Diagnosed Date Depression 08/18/2020 Medical History Medical History Date Comments MS (multiple sclerosis) DX:MS (m ultiple sclerosis) ([facility]) Family History Medical History Relation Name Comments [...] Description 04/16/2025 4:00 PM EST Office Visit [facility] [address] [facility] [address] [place] [phone] Sylvia Murphy PA [address] [facility] [address] [place] [address] Health Maintenance Due Date Last Done Comments Breast Cancer Screening 1972 DTaP,Tdap,and Td Vaccines (1 - Tdap) 1991 Hepatitis B Vaccines (1 of 3 - 19+ 3-dose series) 1991 Cervical Cancer Screening: Pap Smear 1993 Colorectal Cancer Screening: Colonoscopy 05/06/2022 HIV Screening 05/06/2022 Hepatitis C Screening 05/06/2022 Social Influencers of Health Screening 05/06/2022 Pneumococcal Vaccine: 50+ Years (1 of 1 - PCV) 2022 Zoster Vaccines (1 of 2) 2022 Depression Screening 05/29/2024 COVID-19 Vaccine (3 - season) 2025 08/07/2020, 07/17/2020 Influenza Vaccine (#1) 2025 , 03/27/2023, 03/20/2022, Additional history exists RSV Immunization Adult Patients (1 - 1-dose 75+ series) 2047 HIB Vaccines Aged Out No longer eligi [...] on patient's age to complete this topic Procedures Procedure Name Priority Date/Time Associated Diagnosis Comments EXTERNAL MRI REPORT 01/21/2025 EXTERNAL MRI REPORT 01/21/2025 from Last 3 Months Results * External MRI Report (01/21/2025) Only the most recent of2 resultswithin the time period is included. Anatomical Region Laterality Modality Magnetic Resonan ce us Provider [facility] MRI PROCEDURES Final Result from Last 3 Months Insurance [facility] Care Teams Button Sawyer Relationship Specialty Start Date End Date Antonio Zarate MD [address] [place] [address] Dr Pang [place] PCP - General Bindery Supervisor 04/13/20
--- OUTSIDE RECORDS SUMMARY | 2025-02-14 11:25 | XMS_ITS ---
Author Name [facility] Organization Unknown Allergies Allergen Reaction Severity Comment Documented Date Source Statu s PENICILLINS 05/07/2020 [facility] active LATEX RASH [facility]NEMG Problems Problem Status Onset Date Problem Type Date of Resoluti on Source Multiple sclerosis (HCC) active EncounterDiagnosisAct CTTHNE MG Depression active 2020-08-18 ProblemAct CTTHNEM G
--- OUTSIDE RECORDS SUMMARY | 2025-02-14 11:25 | XMS_ITS | Clinical Summary ---
Author Organization [facility] Address [address] [place] [address] Care Team Providers Care Structural Design Engineer Name Role Phone Antonio Zarate MD Primary Care Provider [phone] Allergies Active Allergy Reactions Criticality Noted Date Comments Latex Rash Low 05/07/2020 Penicillins 05/07/2020 Medications Medication Sig Dispensed Refills Start Date End Date Status sertraline (ZOLOFT) 50 MG tablet Take 1 tablet (50 mg total) by mouth daily. 0 Active ergocalciferol (VITAMIN D2) capsule 46055 units 1 cap weekly x 12 weeks [...] 81 12/06/2023 3:50 PM EDT Temperature 36.2 C (97.2 F) 12/06/2023 3:50 PM EDT Respiratory Rate 16 09/14/2022 3:44 PM EDT [...] (1 of 2) 2022 Influenza Vaccine (#1) 2025 Pneumococcal Vaccine Aged Out No long er eligible based on patient's age to complete this topic RSV Ped < 20 months Aged Out No longe r eligible based on patient's age to complete this topic Care Teams Structural Design Engineer Relationship Specialty Start Date End Date Antonio Zarate MD [address] [place] [address] [address] [place] [address] PCP - General Handcrew Foreman 04/13/20
== END 2025-02-14 11:04 | disposition home or self-care (01) ==
PROVIDERS: PCP Internal Medicine; Visit Provider Internal Medicine
DX: H10.31 Unspecified acute conjunctivitis, right eye (principal)

== ENCOUNTER 2025-02-28 16:27 | Outpatient (AMB) | payer BC, SELFPAY ==
--- OUTSIDE RECORDS SUMMARY | 2024-02-23 03:30 | XMS_ITS ---
Author Organization [facility] Address [address] [place] [address] [place] [address] Care Team Providers Care Sales Appointment Coordinator Name Role Phone Tessa (RETIRED) Antonio FLORENTINO Primary Care Provide Wiley Granger Unavailable [phone] REASON FOR VISIT screening Encounters Encounter Location Date Provider Diagnosis [facility] [place] [address] [place] [id number] 02/23/2024 Wiley Richardson Plan Of Treatment Next Appt Details Provider Name:Wiley Richardson , 04/29/2025 01:20:00 PM, [address] [facility], Suite [facility], [place], [address], Progress Notes * GERTRUDE HALLOB:05/30 (54 yo F)Acc No.[id number]:02/23/2024 COLON WITH MAC Patient: BAKARI KAM Provider: Jason Richardson MD :1970 A ge:53 Y S ex:Female Date:02/23/2024 Address:[address] [place], [place] [phone] Pcp:Antonio Zarate (RETIRED )MD Subjective: * Chief Complaints: * 1 . Screening. * Medical History: Objective: * Vitals: Assessment: Plan: * Treatment: * * The named appointment provid er may or may not be the originator of this progress note, and it is not deemed complete until electronically signed by the appointment provider. Sign off status: Pending * Provider: Jason Richardson MD Date: 0 02/23/2024 Generated for Betsy cleary/Huma/eTransmitting on: 04:31 PM EDT
--- OUTSIDE RECORDS SUMMARY | 2024-06-28 04:30 | XMS_ITS ---
Author Organization [facility] Address [address] [place] [address] [place] [address] Care Team Providers Care Consulting Sales Manager Name Role Phone Tessa (RETIRED) Antonio FLORENTINO Primary Care Provide Wiley Granger Unavailable [phone] REASON FOR VISIT screening Encounters Encounter Location Date Provider Diagnosis [facility] [place] [address] [place] [phone] 06/28/2024 Wiley Richardson Plan Of Treatment Next Appt Details Provider Name:Wiley Richardson , 04/29/2025 01:20:00 PM, 10 [facility], Suite [facility], [place], [address], Progress Notes * GERTRUDE HALLOB:[birth year]/30 (54 yo F)Acc No.[id number]:06/28/2024 COLON WITH MAC Patient: BAKARI KAM Provider: Jason Richardson MD :1970 A ge:54 Y S ex:Female Date:06/28/2024 Address:[address] [place], [place] [phone] Pcp:Antonio Zarate (RETIRED )MD Subjective: * Chief [...] * Provider: Jason Richardson MD Date: 0 06/28/2024 Generated for Betsy cleary/Huma/eTransmitting on: 04:30 PM EDT
--- OUTSIDE RECORDS SUMMARY | 2024-08-23 05:30 | XMS_ITS ---
Author Organization [facility] Address [address] [place] [address] [place] [address] Care Team Providers Care Brazing Furnace Feeder Name Role Phone Tessa (RETIRED) Antonio FLORENTINO Primary Care Provide Wiley Granger Unavailable [phone] REASON FOR VISIT screening Encounters Encounter Location Date Provider Diagnosis [facility] [place] Out[place] [address] [place] [id number] 08/23/2024 Wiley Richardson Plan Of Treatment Next Appt Details Provider Name:Wiley Richardson , 04/29/2025 01:20:00 PM, 10 [facility], Suite [facility], [place], [address], Progress Notes * GERTRUDE HALLOB:[birth year]/30 (54 yo F)Acc No.[id number]:08/23/2024 COLON WITH MAC Patient: BAKARI KAM Provider: Jason Richardson MD :1970 A ge:54 Y S ex:Female Date:08/23/2024 Address:[address] [place], [place] [phone] Pcp:Antonio Zarate (RETIRED )MD Subjective: * Chief [...] * Provider: Jason Richardson MD Date: 0 08/23/2024 Generated for Betsy cleary/Huma/eTransmitting on: 04:30 PM EDT
--- OUTSIDE RECORDS SUMMARY | 2024-12-20 09:40 | XMS_ITS ---
Author Organization [facility] Address [address] [place] [address] Care Team Providers Care Treasury Analyst Name Role Phone Tessa (RETIRED) Antonio FLORENTINO Primary Care Provide Wiley Granger [phone] REASON FOR VISIT Patient presents today for a COLON SCREENING Encounters Encounter Location Date Provider Diagnosis [facility] [address] [facility] [address] [place] [address] 12/20/2024 Wiley Richardson Plan Of Treatment Next Appt Details Provider Name:Wiley Richardson , 04/29/2025 01:20:00 PM, [address], [address], [place], [address], Progress Notes * VAL HALL:[birth year]30 (54 yo F)Acc No.[id number]:12/20/2024 Progress Notes Patient: BAKARI KAM Provider: Jason Richardson MD :1970 A ge:54 Y S ex:Female Date:12/20/2024 Address:[address] [facility] Pcp:Antonio Zarate (RETIRED )MD Subjective: * Chief Complaints: * 1 . Patient presents today for a COLON SCREENING. * Medical History: Objective: * Vitals: Assessment: Plan: * Treatment: * * The named appointment provid er may or may not be the originator of this progress note, and it is not deemed complete until electronically signed by the appointment provider. Sign off status: Pending * Provider: Jason Richardson MD Date: 12/20/2024 Generated for Betsy cleary/Huma/Susan on: 1 04:30 PM EDT
--- NOTE | 2025-02-28 16:29 | MHC.PC.OV ---
Vital Signs 02/28/25 16:34 Height 4 ft 10 in Weight 56.699 kg BMI 26.1 BP 112/74 Blood Pressure Location Rt brachial Position Sitting Respiration 16 Pulse 77 Pulse Source Pulse Oximeter Temp 98.7 F Temp Source Temporal Artery Scan Pulse Oximetry (%) 96 Oxygen Delivery Method Room Air Intake Visit Reasons: Annual / Dr Zarate - see comments Electric Switch Repairer Required: No Accompanied by: Self / Same As Patient Allergies Penicillins Allergy (Unknown, Verified 02/28/25 16:30) UNKNOWN latex Allergy (Verified 02/28/25 16:30) Unknown Tobacco use date assessed: 02/28/25 Dental Screening Dental Screen Date: 02/28/25 Did you have a dental visit in the last 12 months?: Yes Did you have a dental problem in the last 6 months where you did not have access to dental care?: No Was dental information given to patient?: Patient has dentist HPI HPI Comments History of Present Illness Details 54-year-old female with history of anxiety, multiple sclerosis, vitamin-D deficiency presenting to the office today for management of chronic conditions and to establish care. Anxiety/depression-initially related to MS diagnosis but has persisted. However well managed with sertraline 50 mg daily. 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 No SI/HI. MS- neurologist- [facility]. On Gilenya and dalfampridine. Occ paresthesias when walking, but nothing new. MRI brain about 3 weeks ago, awaiting results. Vitamin-D insufficiency[place] [address] [place]. Not currently taking supplement. Concerns: Bilateral hearing loss- x months. No exposure to prolonged loud noise. No tinnitus, otalgia, otorrhea Health maintenance: Mammograms, Pap smear is up-to-date Upcoming colonoscopy ROS: General: No fevers, malaise, unintentional weight loss HEENT: No blurred vision, diplopia. No sore throat, nasal congestion, rhinorrhea, sinus pain, ear pain Cardiovascular: No chest pain, palpitations, or leg edema Respiratory: No shortness of breath, wheezing, cough GI: No abdominal pain, nausea, vomiting, diarrhea, constipation, melena, hematochezia : No dysuria, hematuria, increased urinary frequency, decreased urinary output MSK: No myalgia, back pain Neuro: No headaches, weakness, paresthesias Skin: No rashes or lesions EXAM: Constitutional - Awake and Alert, No apparent distress Eyes - PERRL Cardiovascular - S1S2, RRR, No edema Respiratory - Normal lung expansion, Normal respiratory effort, No respiratory distress, CTA bilaterally Extremities - no calf tenderness bilaterally, no swelling Skin - Warm/Dry Neurological - Alert & oriented x3 Psychological - Appropriate affect [facility] Medical History Anxiety Balance problem Epidermal cyst Multiple sclerosis Surgical History No pertinent past surgical history Social History Housing: House Patient Tobacco Use Status: Never used Tobacco e-Cigarette/Vaping Use: Never Used service: No Current occupational status: employed Current occupation: [employer] [place] [employer] Questionnaire AUDIT C Alcohol Use Questionnaire (AUDIT-C) 1. How often do you have a drink containing alcohol?: Never 3. How often do you have six or more drinks on one occasion?: Never Total Score: 0 Physical exam (Primary Care) Vital Signs: Last Vital Signs Temp 98.7 F 02/28/25 16:34 Pulse 77 02/28/25 16:34 Resp 16 02/28/25 16:34 BP 112/74 02/28/25 16:34 Pulse Ox 96 02/28/25 16:34 Oxygen Delivery Method Room Air 02/28/25 16:34 BMI result Body Mass Index 26.1 Tobacco/Smoking Status: Tobacco use Status Tobacco use date assessed 02/28/25 02/28/25 16:37 Patient Tobacco Use Status Never used Tobacco 02/28/25 16:37 e-Cigarette/Vaping Use Never Used 02/28/25 16:37 Coding Level of Care Code New Pt Level 4 (15414) Complex EM visit Add On G2211 Diagnoses Anxiety F41.9 Multiple sclerosis G35 Bilateral hearing loss H91.93 Assessment & Plan Assessment & Plan (1) Anxiety: Code(s): F41.9 - Anxiety disorder, unspecified Category: Medical Plan: Stable. Continue sertraline (2) Multiple sclerosis: Code(s): G35 - Multiple sclerosis Category: Medical Plan: Stable. Continue following with [facility]. Request MRI. Continue on current medications (3) Bilateral hearing loss: Code(s): H91.93 - Unspecified hearing loss, bilateral Category: Medical Plan: No cerumen noted. Referred to audiology Plan Follow-up in the office in 6 months for annual physical exam. Labs as below Orders: Orders Vitamin D 25-OH Total Today E55.9 - Vitamin D deficiency, unspecified, G35 - Multiple sclerosis Basic Metabolic Panel Today F41.9 - Anxiety disorder, unspecified, G35 - Multiple sclerosis Lipid Panel Today F41.9 - Anxiety disorder, unspecified, G35 - Multiple sclerosis Referrals Audiology Referral H91.93 - Unspecified hearing loss, bilateral
--- OUTSIDE RECORDS SUMMARY | 2025-02-28 16:30 | XMS_ITS ---
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 She was seen on November 25, 2024, at which time she was treated with Liquid Nitrogen.The patient presents for focused visit and follow up evaluation.Interval History: Patient reports LN2 did not do anything to the warts. Patient reports they are still the same as they were when she had them frozen atlast visit. Allergies, Adverse Reactions, Alerts Substance RxNorm Reaction(s) Severity Status Start Da te latex [id number] unspecified active Penicillins unspecified active Medications Medication Generic Name RxNorm Strength Strength Unit Route Dose Dose Form Frequency Date Started Date Ended Status Indication Sig Ampyra dalfampr idine 10 mg oral 1 table t bid active desogestrel -ethinyl estradiol desogest rel-ethi nyl estradio l Oral suspend ed Gilenya fingolim od 5 mg Oral 1 capsu le daily active Zoloft sertrali ne 50 mg Oral 1 table t daily active Apri NULL 07/03/19 16 suspend ed APRI .15-30 MG-MCG TABS NULL 02/15 16 active APRI .15-30 MG-MCG TABS NULL 02/15 16 active AZITHROMYCI N 250 MG TABS NULL 08/05/19 16 active Cyclobenzap rine HCl NULL 0 16 active CYCLOBENZAP RINE HCL 5 MG TABS NULL 08/05/19 16 active Gabapentin NULL 09/16/19 16 active GABAPENTIN 600 MG TABS NULL 02/15 16 active METHYLPREDN ISOLONE DOSE PACK 4 MG TABS NULL 08/05/19 16 active METHYLPREDN ISOLONE DOSE PACK 4 MG TABS NULL 08/05/19 16 active Naproxen NULL 09/16/19 16 active NAPROXEN 500 MG TABS NULL 02/15 16 active Sertraline HCl NULL 09/16/19 16 active Sertraline HCl NULL 07/03/19 16 suspend ed SERTRALINE HCL 50 MG TABS NULL 08/05/19 16 active SERTRALINE HCL 50 MG TABS NULL 08/05/19 16 active SERTRALINE HCL 50 MG TABS NULL 08/05/19 16 active SERTRALINE HCL 50 MG TABS NULL 08/05/19 16 active Sulfamethox azole-Trime thoprim NULL 09/16/19 16 active SULFAMETHOX AZOLE/TRIME THOPRIM DS 800-160 MG TABS NULL 08/05/19 16 active Tysabri NULL 08/05/19 16 suspend ed TYSABRI 300 MG/15ML CONC NULL 08/05/19 16 active TYSABRI 300 MG/15ML CONC NULL 08/05/19 16 active TYSABRI 300 MG/15ML CONC NULL 08/05/19 16 active TYSABRI 300 MG/15ML CONC NULL 08/05/19 16 active TYSABRI 300 MG/15ML CONC NULL 08/05/19 16 active TYSABRI 300 MG/15ML CONC NULL 08/05/19 16 active Problems Problem Code Type Status Date of Diagnosis Da te of Resolution Verruca vulgaris (disorder) 55536996(SNOM ED) Diagnosis active 02/27/2025 Verruca vulgaris (disorder) 26650926(SNOM ED) Diagnosis active 11/25/2024 Clinical finding (finding) 580463972(SNO MED) Diagnosis active 07/05/2023 Verruca vulgaris (disorder) 98793050(SNOM ED) Diagnosis active 02/16/2021 Anxiety disorder (disorder) 068448425(SNO MED) Problem active Depressive disorder (disorder) 81053216(SNOM ED) Problem active History of skin disorder (situation) 664088219(SNO MED) Problem active Multiple sclerosis (disorder) 74785136(SNOM ED) Problem active Results No data Encounters Service provided at [address], [address], [place], [place] [id number]. Office phonenumber is [phone]. Office fax number is [phone]. Encounter Diagnosis Location Date / Time Type Verrucae Vulgaris (B07.8) [facility] 02/27/2025 11:4 5:00 [place] Reason For Referral No data Procedures Procedure Date Documentation of current medications (pr ocedure) 02/27/2025 12:00 am UTC Cryotherapy of skin lesion with liquid n itrogen (procedure) 02/27/2025 12:00 am UTC Destruction of lesion of skin (procedure ) 02/27/2025 12:00 am UTC Documentation of current medications (pr ocedure) 11/25/2024 12:00 am UTC Cryotherapy of skin lesion with liquid n itrogen (procedure) 11/25/2024 12:00 am UTC Cryotherapy of skin lesion with liquid n itrogen (procedure) 02/16/2021 12:00 am UTC Documentation of past medical history (p rocedure) Documentation of past medical history (p rocedure) Review Of Systems Provider reviewed on Feb 27, 2025.A complete review of systems was performed and was notable for joint aches, muscle weakness, anxiety, and depression.No Problems With Healing, No Problems With Scarring (hypertrophic Or Keloid), No Problems With Bleeding, No Immunosuppression, No Hay Fever, No Chest Pain, No Fever Or Chills, No Night Sweats, No Unintentional Weight Loss, No Thyroid Problems, No Sore Throat, No Blurry Vision, No Abdominal Pain, No Bloody Stool, No Bloody Urine, No Neck Stiffness, No Headaches, No Seizures, No Shortness Of Breath, And No Wheezing. Assessment 1.Verrucae VulgarisCounselingLiquid Nitrogen: right ring finger proximal interphalangeal joint; right ring finger proximal interphalangeal joint; right middle finger proximal interphalangeal joint; left mid ulnar dorsal middle finger; Duration of freeze thaw-cycle (seconds) - 10-15; Medical Necessity Justification (varies by insurance carrier and by region) - irritated, itchy, and inflamed; Number of freeze-thaw Cycles - 2 freeze-thaw cycles; Application Tool - Cry-AC.Cantharidin Multi: right ring finger proximal interphalangeal joint; right middle finger proximal interphalangeal joint; rightring finger proximal interphalangeal joint; left mid dorsal middle finger; Total number of lesions treated - 4; Curette before application? - No; Strength - Cantharone plus; Medical Necessity Justification (varies by insurance carrier and by region) - painful.Recommendations: Recommendations (Free Text) - OTC WartStick at bedtime..Photo-Documentation:. Plan of Care Future visit for 04/10/2025 - Follow up in 6 weeks for: Focused Visit - 15 minutes Instructions * I counseled the patient regarding the following:The patient is not interested in medications that stimulate or affect her immune system. A range of treatment options were discussed with the patient. Treatment with LN was performed followed by zeenat in the office today. I also informed her about WartStick, which she found appealing. She will use it at home. FU in 6 weeks. Social History Code Activity Start Date End Date [id number] (SNOMED) Never smoker Sex female Sexual orientation Unspecified Gender identity Unspecified Vital Signs No data
--- OUTSIDE RECORDS SUMMARY | 2025-02-28 16:30 | XMS_ITS | Clinical Summary ---
Author Organization [facility] Address [address] [place] [address] Care Team Providers Care Personal Lines Sales Executive Name Role Phone Antonio Zarate MD Primary Care Provider [phone] Allergies Active Allergy Reactions Criticality Noted Date Comments Latex Rash Low 05/07/2020 Penicillins 05/07/2020 Medications Medication Sig Dispensed Refills Start Date End Date Status sertraline (ZOLOFT) 50 MG tablet Take 1 tablet (50 mg total) by mouth daily. 0 Active ergocalciferol (VITAMIN D2) capsule 43505 units 1 cap weekly x 12 weeks [...] age to complete this topic Care Teams Personal Lines Sales Executive Relationship Specialty Start Date End Date Antonio Zarate MD [address] [place] [address] [address] [place] [address] PCP - General Utility Assembler 04/13/20
--- OUTSIDE RECORDS SUMMARY | 2025-02-28 16:30 | XMS_ITS | Patient Health Record ---
Author Organization [facility] Address [address] [place] [phone] Care Team Providers Care Pin Puller Name Role Phone Tessa (RETIRED) Antonio FLORENTINO Primary Care Provide Wiley Granger Unavailable [phone] Allergies Allergen (clinical drug ingredient) Drug/Non Drug [...] Status Risk Notes Problem Colon cancer screening (530778343) Colon cancer screening (Z12.11) Active confirmed Problem Pre-procedure evaluation check (594726387) Encounter for other preprocedural examination (Z01.818) Active confirmed Encounters Encounter Location Date Provider Diagnosis [facility] [address] [place] [phone] 06/04/2024 Wiley Richardson [facility] [address] [place] [phone] 08/22/2024 Wiley Richardson [facility] [address] [place] [address] 12/19/2024 Wiley Richardson Plan Of Treatment Future Test Test Name Order Date COLONOSCOPY 10/26/2023 Next Appt Details Provider Name:Wiley Richardson , 04/29/2025 01:20:00 PM, [address], [address], [place], [address], Insurance Providers Payer Name Payer Address Payer Phone Subscriber Number Group Number Insured Name Patient Relationship to Insured Coverage Start Date Coverage End Date [facility] [address] [place] [address] [id number] [address] HALL Self - patient is the insured Medical (General) History Medical History History ICD Code Multiple sclerosis--balance issues Anxiety Denies UT,DM,CVA,Lung disease,renal dise ase Surgical History Surgery Date(Month/Year)
--- OUTSIDE RECORDS SUMMARY | 2025-02-28 16:31 | XMS_ITS | Clinical Summary ---
Author Organization [facility] Address [address] [place] [address] Phone Care Team Providers Care Quill Worker Name Role Phone Antonio Zarate MD Primary Care Provider [phone] Allergies Active Allergy Reactions Criticality Noted Date [...] (one) time each day. 30 each 5 03/26/20 25 Active sertraline (ZOLOFT) 50 mg tablet Take 1 tablet (50 mg total) by mouth 1 (one) time each day. 30 each 5 02/25/20 25 Discontinu ed(Reorder ) Active Problems Problem Noted Date Diagnosed Date Depression 08/18/2020 Medical History Medical History Date Comments MS (multiple sclerosis) DX:MS (m ultiple sclerosis) (HCC) Family History Medical History Relation Name Comments [...] Description 04/16/2025 4:00 PM EST Office Visit [facility] [address] [place] [phone] Sylvia Murphy, BECKIE [address] [place] [address] Health Maintenance Due Date Last Done Comments Breast Cancer Screening 1972 Colorectal Cancer Screening: Colonoscopy 1972 DTaP,Tdap,and Td Vaccines (1 - Tdap) 1991 Hepatitis B Vaccines (1 of 3 - 19+ 3-dose series) 1991 Cervical Cancer Screening: Pap Smear 1993 HIV Screening 05/06/2022 Hepatitis C Screening 05/06/2022 Social Influencers of Health Screening 05/06/2022 Pneumococcal Vaccine: 50+ Years (1 of 1 - PCV) 2022 Zoster Vaccines (1 of 2) 2022 Depression Screening 05/29/2024 COVID-19 Vaccine ( - 2024- season) 2025 08/07/2020, 07/17/2020 Influenza Vaccine (#1) 2025 4, 03/27/2023, 03/20/2022, Additional history exists RSV Immunization [...] Anatomical Region Laterality Modality Magnetic Resonan ce Provider [facility] IM MRI PROCEDURES Final Result from Last 3 Months Insurance [facility] Care Teams Quill Worker Relationship Specialty Start Date End Date Antonio Zarate MD [address] [place] PCP - General [employer] Worker 04/13/20
[2025-02-28 16:34] VITALS: BP 112/74; PULSE 77; RESP 16; TEMP 37.1; O2SAT 96; BMI 26.1
== END 2025-02-28 17:01 | disposition home or self-care (01) ==
LOC: HO.HMCHD 16:28
PROVIDERS: PCP Internal Medicine; Visit Provider Physician Assistant
DX: F41.9 Anxiety disorder, unspecified (principal); G35.D Multiple sclerosis, unspecified; H91.93 Unspecified hearing loss, bilateral

== ENCOUNTER 2025-03-07 07:59 | Outpatient (REF) | payer BC, SELFPAY ==
--- OUTSIDE RECORDS SUMMARY | 2025-03-07 08:01 | XMS_ITS | Clinical Summary ---
Author Organization [facility] Address [address] [place] [address] Care Team Providers Care Electric Golf Cart Repairer Name Role Phone Antonio Zarate MD Primary Care Provider [phone] Allergies Active Allergy Reactions Criticality Noted Date Comments Latex Rash Low 05/07/2020 Penicillins 05/07/2020 Medications Medication Sig Dispensed Refills Start Date End Date Status sertraline (ZOLOFT) 50 MG tablet Take 1 tablet (50 mg total) by mouth daily. 0 Active ergocalciferol (VITAMIN D2) capsule 37116 units 1 cap weekly x 12 weeks [...] age to complete this topic Care Teams Electric Golf Cart Repairer Relationship Specialty Start Date End Date Antonio Zarate MD [address] [place] [address] [address] [place] [address] PCP - General Chief Meteorologist 04/13/20
[2025-03-07 09:07] LABS: Anion Gap 9 (12-20); Blood Urea Nitrogen 12 mg/dL (9-16); Calcium 9.7 mg/dL (8.4-10.2); Carbon Dioxide 33 mmol/L (22-29); Chloride 106 mmol/L (96-108); Cholesterol 250 mg/dL (<200); Estimated Glomerular Filt Rate > 60; HDL Cholesterol 77 mg/dL (>40); Potassium 3.9 mmol/L (3.3-5.1); Sodium 144 mmol/L (135-145); Triglycerides 65 mg/dL (<150)
== END 2025-03-07 08:00 | disposition home or self-care (01) ==
LOC: HO.LAB 07:59
PROVIDERS: PCP Physician Assistant; Visit Provider Physician Assistant
DX: G35.D Multiple sclerosis, unspecified (principal); F41.9 Anxiety disorder, unspecified; E55.9 Vitamin D deficiency, unspecified; Z13.6 Encounter for screening for cardiovascular disorders
CPT/HCPCS: 36415; 80048; 80061; 82306